=== PATIENT | male | born 1995 | race Caucasian/White ===

== ENCOUNTER 2022-03-15 06:26 | Emergency (ER) | payer SELFPAY ==
[~2022-03-15] VITALS: Ht 175.3 cm; Wt 60.1 kg
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
[2022-03-15 07:06] LABS: BASOPHILS # (AUTO) 0.1 10^3/uL (0.0-0.1); BASOPHILS % (AUTO) 1 % (0-10); EOSINOPHILS % (AUTO) 0 % (0-10); HEMATOCRIT 43 % (40-54); HEMOGLOBIN 15.2 g/dL (13.3-17.7); LYMPHOCYTES # (AUTO) 1.9 10^3/uL (1.0-4.0); LYMPHOCYTES % (AUTO) 17 % (12-44); MEAN CORPUSCULAR HEMOGLOBIN 30 pg (25-34); MEAN CORPUSCULAR HGB CONC 35 g/dL (32-36); MEAN CORPUSCULAR VOLUME 87 fL (80-99); MEAN PLATELET VOLUME 9.5 fL (9.0-12.2); MONOCYTES # (AUTO) 0.8 10^3/uL (0.0-1.0); MONOCYTES % (AUTO) 7 % (0-12); NEUTROPHILS # (AUTO) 8.2 10^3/uL (1.8-7.8); NEUTROPHILS % (AUTO) 75 % (42-75); PLATELET COUNT 254 10^3/uL (130-400)
[2022-03-15 07:17] LABS: CHLORIDE 105 MMOL/L (98-107); POTASSIUM 3.2 MMOL/L (3.6-5.0); SODIUM 142 MMOL/L (135-145)
[2022-03-15 07:18] LABS: ALBUMIN 4.6 GM/DL (3.2-4.5)
[2022-03-15 07:19] LABS: CALCIUM 9.5 MG/DL (8.5-10.1)
[2022-03-15 07:20] LABS: GLUCOSE 100 MG/DL (70-105); TOTAL PROTEIN 7.3 GM/DL (6.4-8.2)
[2022-03-15 07:21] LABS: CARBON DIOXIDE 22 MMOL/L (21-32)
[2022-03-15 07:22] LABS: BILIRUBIN,TOTAL 0.8 MG/DL (0.1-1.0)
[2022-03-15 07:24] LABS: ALKALINE PHOSPHATASE 45 U/L (40-136); CREATININE SERUM 1.27 MG/DL (0.60-1.30); GFR ESTIMATED 81
[2022-03-15 07:25] LABS: BILIRUBIN,URINE NEGATIVE (NEGATIVE); CLARITY,URINE CLEAR; COLOR,URINE YELLOW; GLUCOSE, URINE (UA) NEGATIVE (NEGATIVE); KETONES,URINE NEGATIVE (NEGATIVE); LEUKOCYTE ESTERASE ,URINE NEGATIVE (NEGATIVE); NITRITE,URINE NEGATIVE (NEGATIVE); PROTEIN,URINE NEGATIVE (NEGATIVE)
[2022-03-15 07:25] LABS: BUN/CREATININE RATIO 6
[2022-03-15 07:26] LABS: ABG BASE EXCESS -0.4 MMOL/L (-2.5-2.5); ABG OXYGEN SATURATION 99 % (94-100); ABG PCO2 40 MMHG (35-45); ABG PH 7.39 (7.37-7.43); ABG PO2 110 MMHG (79-93); ABG TCO2 25.2 MMOL/L (21.0-31.0)
[2022-03-15 07:27] LABS: ALLENS TEST POSITIVE; PATIENT TEMP 36.7; VENTILATOR NO
[2022-03-15 07:27] LABS: ALANINE AMINOTRANSFERASE 7 U/L (0-55); SALICYLATE < 5.0 MG/DL (5.0-20.0)
[2022-03-15 07:32] LABS: ACETAMINOPHEN < 10 UG/ML (10-30)
--- NOTE | 2022-03-15 07:41 | Diagnostic Imaging Report ---
CHEST 1 VIEW, AP/PA ONLY Indication: Caustic ingestion Comparison: None available. Findings: No focal airspace disease in the visualized lungs. Please note that the posterior lower lobes are poorly evaluated by portable radiography. No pleural effusion or pneumothorax. Normal cardiomediastinal silhouette. No features of pneumomediastinum. Impression: 1. No acute cardiopulmonary process by portable radiography. Dictated by: Dictated on workstation # [id number]
[2022-03-15 07:52] LABS: AMPHETAMINE SCREEN, URINE NEGATIVE (NEGATIVE); BARBITURATE SCREEN URINE NEGATIVE (NEGATIVE); BENZODIAZEPINES SCREEN URINE NEGATIVE (NEGATIVE); CANNABINOID SCREEN, URINE POSITIVE (NEGATIVE); COCAINE SCREEN URINE NEGATIVE (NEGATIVE); METHADONE STAT NEGATIVE (NEGATIVE); OPIATE SCREEN URINE NEGATIVE (NEGATIVE); OXYCODONE STAT NEGATIVE (NEGATIVE); PROPOXYPHENE STAT NEGATIVE (NEGATIVE); TRICYCLIC ANTIDEPRESSANTS SCRE NEGATIVE (NEGATIVE)
[2022-03-15 07:58] LABS: BACTERIA,URINE TRACE /HPF; WBC,URINE RARE /HPF
[2022-03-15 10:50] VITALS: BP 125/75
== END 2022-03-15 10:50 | disposition home or self-care (01) ==
LOC: ER 06:29
DX: T54.92XA Toxic effect of unspecified corrosive substance, intentional self-harm, initial encounter (principal)
CPT/HCPCS: 71045; 80053; 80306; 81000; 82805; 85025; 93005; 93041; 99285; G0480 ×3; 36415; 80320; 80329

== ENCOUNTER 2022-07-03 03:11 | Emergency (ER) | payer SELFPAY ==
[2022-07-03] MEDS ORDERED: RX-MUPIROCIN (BACTROBAN) 2% OINT 22 GM TUBE TOP STA (04:23)
[2022-07-03] MEDS ORDERED: AUGMENTIN 875 MG TAB (AMOXICILLIN/CLAVULANATE) PO SCH (04:30)
[2022-07-03] MEDS ORDERED: TETANUS,DIPTH,PERTUSS P/F (BOOSTRIX) 0.5 ML VIAL IM ONE (04:30)
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
[2022-07-03] MEDS ORDERED: AMOX1TAB12 PO (04:51)
[2022-07-03 04:53] VITALS: BP 137/92
--- NOTE | 2022-07-03 07:16 | Diagnostic Imaging Report ---
INDICATION: Dog bite, check for foreign body. Multiple abrasions especially 1st and 2nd digits. EXAMINATION: Left hand 07/03/2022 3 views of the hand. FINDINGS: There is no evidence for an acute fracture or dislocation. The joint spaces are well maintained. There is no significant soft tissue swelling. No radiopaque foreign bodies. IMPRESSION: No acute process. Dictated by: Dictated on workstation # [id number]
== END 2022-07-03 04:57 | disposition home or self-care (01) ==
LOC: EDUNIT# 03:11 → ER 03:16
DX: S61.251A Open bite of left index finger without damage to nail, initial encounter (principal); S61.257A Open bite of left little finger without damage to nail, initial encounter; S61.253A Open bite of left middle finger without damage to nail, initial encounter; S61.255A Open bite of left ring finger without damage to nail, initial encounter; S61.052A Open bite of left thumb without damage to nail, initial encounter; F17.210 Nicotine dependence, cigarettes, uncomplicated; Z23 Encounter for immunization; Z28.310 Unvaccinated for COVID-19; W54.0XXA Bitten by dog, initial encounter
CPT/HCPCS: 73130; 90715

== ENCOUNTER 2022-07-05 15:17 | Emergency (ER) | payer SELFPAY ==
[~2022-07-05] VITALS: Ht 175.2 cm; Wt 68.0 kg
[~2022-07-05 15:17] MED LIST: AMOX1TAB12 PO
--- NOTE | 2022-07-05 15:45 | ED Suture Removal/Wound Check ---
Suture/Wound Re-check General Appearance: WD/WN, no apparent distress Neuro/Tendon: normal sensation, normal motor functions, normal tendon functions Skin Exam: other (Healing skin abrasions to the left hand, right arm. Mild localized redness to the left dorsum hand. No purulent drainage. No warmth.) Comments Patient presents the ED for wound check after a dog bite 2 days ago. Currently on oral antibiotics and using topical antibiotics ointments. He states pain has improved. Does have some mild redness to the left dorsum thumb but states he started to get more range of motion and the redness has improved. Denies fever, chills, nausea, vomiting, diarrhea Physical Exam Vital Signs Vital Signs - First Documented 07/05/22 15:24 Temp 36.8 Pulse 68 Resp 14 B/P (MAP) 111/70 Pulse Ox 99 O2 Delivery Room Air Capillary Refill : General Appearance: WD/WN, no apparent distress HEENT: normal ENT inspection, TMs normal Neck: non-tender, full range of motion, supple, normal inspection Cardiovascular: regular rate, rhythm, no edema, no gallop Respiratory: chest non-tender, lungs clear, normal breath sounds, no respiratory distress Gastrointestinal: normal bowel sounds, non tender, soft Back: normal inspection, no CVA tenderness Extremities: other (Limited active range of motion at the DIP joint of the left thumb. Normal active range of motion of the other digits. Abrasions to the left hand) Skin: other (Healing abrasions noted to the left dorsum hand. Mild redness to the superficial abrasion to the left dorsum thumb distally proximal to the nailbed. No circumferential swelling or redness. No purulent drainage to the left thumb.) Departure Communication (PCP) Abrasions appear to be healing. Does have some subtle redness to the left dis gelacio thumb but does have limited movement secondary to pain but states the pain is improving. No active drainage. No circumferential swelling or redness. No fluctuant mass. Healing abrasion of the right arm. Continue with oral and topical antibiotic ointments. If increased redness or swelling or pain to return back to ED. Discussed wound care Impression Primary Impression: Skin abrasion Disposition: 01 HOME, SELF-CARE Condition: Stable Departure-Patient Inst. Decision time for Depature: 15:44 Referrals: NO,LOCAL PHYSICIAN (PCP/Family) Primary Care Physician Patient Instructions: Skin Abrasions (DC) Add. Discharge Instructions: If increased redness or swelling to the left thumb or skin abrasions return back to ED All discharge instructions reviewed with patient and/or family. Voiced understanding. HEATH STRAUSS Jul 05, 2022 15:45
[2022-07-05 15:48] VITALS: BP 111/70
== END 2022-07-05 15:47 | disposition home or self-care (01) ==
LOC: EDUNIT# 15:17 → ER 15:19
DX: S50.811A Abrasion of right forearm, initial encounter (principal); S60.312A Abrasion of left thumb, initial encounter; Z28.310 Unvaccinated for COVID-19; W54.0XXA Bitten by dog, initial encounter

== ENCOUNTER 2022-08-27 02:54 | Emergency (ER) | payer SELFPAY ==
[~2022-08-27] VITALS: Ht 175 cm; Wt 68.0 kg
[2022-08-27] MEDS ORDERED: ACYC-112 PO (03:29)
[2022-08-27] MEDS ORDERED: CEPH500T PO (03:29)
--- NOTE | 2022-08-27 03:29 | ED Integumentary General ---
General Chief Complaint: Skin/Wound Problems Stated Complaint: BUMPS ON FOREHEAD Nursing Triage Note: Patient advised approximately 4 days ago he noticed several bumps on his forhead. He advised in the last two days that the area of concern iis not getting better. Source: patient Exam Limitations: no limitations History of Present Illness Date Seen by Provider: Aug 27, 2022 Time Seen by Provider: 03:04 Allergies and Home Medications Allergies Coded Allergies: No Known Drug Allergies (Unverified , 03/15/22) Patient Home Medication List Amoxicillin/Potassium Clav (Amox Tr-K Clv 875-125 mg Tab) 875 Mg-125 Mg Tablet, 1 EACH PO BID Prescribed by: ELISA CARBALLO on 07/03/22 045 Past [id number]-[id number] Hx Patient Social History Tobacco Use?: Yes Tobacco type used: Cigarettes Smoking Status: Current Everyday Smoker Substance use?: No Alcohol Use?: No Immunizations Up To Date First/Initial COVID19 Vaccinat: NONE Second COVID19 Vaccination Jerry: NONE Third COVID19 Vaccination Date: NONE Past Medical History Surgery/Hospitalization HX: REPORTS PREVIOUS SUICIDE ATTEMPTS TUBES IN EARS WHEN HE WAS A CHILD AND AND APPENDECTOMY Surgeries: Yes Appendectomy, Ear Surgery Respiratory: No Cardiac: No Neurological: No Genitourinary: No Gastrointestinal: No Musculoskeletal: No Endocrine: No 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 Cancer: No Psychosocial: Yes Suicide Attempts, Depression Integumentary: No Blood Disorders: No Physical Exam Vital Signs Vital Signs - First Documented 08/27/22 03:09 Temp 36.8 Pulse 96 Resp 16 B/P (MAP) 144/84 (104) Pulse Ox 100 O2 Delivery Room Air Capillary Refill : Less Than 3 Seconds Progress/Results/Core Measures Results/Orders My Orders Orders - HEBER INGRAM MD Cephalexin Capsule (Keflex Capsule) (08/27/22 03:30) Acyclovir Capsule/Tablet (Zovirax Caps (08/27/22 03:30) Vital Signs/I&O 08/27/22 03:09 Temp 36.8 Pulse 96 Resp 16 B/P (MAP) 144/84 (104) Pulse Ox 100 O2 Delivery Room Air Blood Pressure Mean: 104 Departure Impression Primary Impression: Facial rash Additional Impression: Lymphadenopathy Disposition: 01 HOME, SELF-CARE Condition: Stable Departure-Patient Inst. Decision time for Depature: 03:26 Referrals: NO,LOCAL PHYSICIAN (PCP/Family) Primary Care Physician Patient Instructions: Cellulitis (Skin Infection), Adult ED, Shingles Add. Discharge Instructions: The exact cause of your rash is uncertain but it may be related to skin infection (cellulitis) or shingles (reactivation of chickenpox virus). Since cause is uncertain, will you are being treated for both possible causes. Complete your medications as prescribed. Return to care if you have worsening symptoms. All discharge instructions reviewed with patient and/or family. Voiced understanding. Scripts Acyclovir (Acyclovir) 800 Mg Tablet 800 MG PO 5XD, #35 TAB Prov: HEBER INGRAM MD 08/27/22 Cephalexin (Cephalexin) 500 Mg Tablet 500 MG PO QID, #28 TAB Prov: HEBER INGRAM MD 08/27/22 HEBER INGRAM MD Aug 27, 2022 03:29
[2022-08-27] MEDS ORDERED: CEPHALEXIN 250 MG (KEFLEX) CAP PO ONE (03:30)
[2022-08-27] MEDS ORDERED: ACYCLOVIR 400 MG TABLET (ZOVIRAX) PO ONE (03:30)
[2022-08-27 03:33] VITALS: BP 144/84
== END 2022-08-27 03:34 | disposition home or self-care (01) ==
LOC: EDUNIT# 02:54 → ER 02:57
DX: R21 Rash and other nonspecific skin eruption (principal); R59.1 Generalized enlarged lymph nodes; F17.210 Nicotine dependence, cigarettes, uncomplicated
CPT/HCPCS: 99283